=== PATIENT | male | born 1960 | race Caucasian/White ===

== ENCOUNTER 2019-02-06 17:21 | Emergency (ER) | payer OTHER ==
[~2019-02-06] VITALS: Ht 175.3 cm; Wt 76.7 kg
[2019-02-06 17:38] VITALS: Ht 175.3 cm; Wt 76.7 kg
[2019-02-06 20:16] VITALS: BP 137/77
== END 2019-02-06 20:16 | disposition home or self-care (01) ==
LOC: ED 17:21
DX: J45.901 Unspecified asthma with (acute) exacerbation (principal)
CPT/HCPCS: J7512; J7620